=== PATIENT | female | born 1950 | race Caucasian/White ===

== ENCOUNTER 2021-11-04 19:46 | Emergency (ER) | payer MEDICARE, OTHER ==
[~2021-11-04] VITALS: Ht 170.2 cm; Wt 65.3 kg
--- NOTE | 2021-11-04 20:12 | NUR ---
ANGELINA FROM HOME C/O CHRONIC SHOOTING RIGHT LEG PAIN. PATIENT ALERT AND ORIENTED X3. AMBULATORY WITH NON LABORED BREATHIGN IN BED 02 AWAITING MD NORMAN.
[2021-11-04] MEDS ORDERED: KETOROLAC TROMETHAMINE INJ 30 MG/ML VIAL ONE (20:27)
[2021-11-04] MEDS ORDERED: CYCLOBENZAPRINE 10 MG TABLET ONE (20:28)
--- NOTE | 2021-11-04 20:29 | NUR ---
XRAY AT BEDSIDE
[2021-11-04] MEDS ORDERED: KETOROLAC TROMETHAMINE INJ 60 MG/2 ML VIAL IM ONE (20:30)
[2021-11-04] MEDS ORDERED: CYCLOBENZAPRINE 10 MG TABLET PO ONE (20:30)
--- NOTE | 2021-11-04 20:34 | NUR ---
US AT BEDSIDE
--- NOTE | 2021-11-04 21:29 | NUR ---
Carylle faye in [facility] - 11/04/21 at 2132 by SCOT Patient's gas leak inspector helper (Dr. Cueto) updated on patient's condition. He is available to provide additional information and would like to be updated about the patient's hospital course
[2021-11-04] MEDS ORDERED: RIVA15TA PO (21:35)
--- NOTE | 2021-11-04 21:47 | NUR ---
Patient discharged to home in stable condition. Written and verbal after care instructions given. Patient verbalizes understanding of instruction. Pt ambulatory with a steady gait
[2021-11-04 21:54] VITALS: BP 142/74
== END 2021-11-04 21:47 | disposition home or self-care (01) ==
LOC: ER 20:02
DX: I82.441 Acute embolism and thrombosis of right tibial vein (principal); I10 Essential (primary) hypertension; E11.9 Type 2 diabetes mellitus without complications
CPT/HCPCS: 73552; 93971; 96372; 99284; J1885

== ENCOUNTER 2021-11-07 06:52 | Emergency (ER) | payer MEDICARE, OTHER ==
[~2021-11-07] VITALS: Ht 167.6 cm; Wt 59.9 kg
[~2021-11-07 06:52] MED LIST: RIVA15TA PO
--- NOTE | 2021-11-07 07:03 | NUR ---
[id number] FROM HOME C/O R LEG PAIN; WAS DX DVT ON 11/04. PT TOLERATING R/A WELL WITH NO SOB. CONNECTED PT TO POX AND MONITOR. SAFETY MEASURES IN PLACE. VSS. AWAITING MED EVAL Addendum: 11/07/21 at 0705 by JISIP [id number] FROM HOME C/O R LEG PAIN; WAS DX DVT ON 11/04. PT TOLERATING R/A WELL WITH NO SOB. CONNECTED PT TO POX AND MONITOR. SAFETY MEASURES IN PLACE. AWAITING MED EVAL
--- NOTE | 2021-11-07 07:10 | NUR ---
DR. LAW DEL CASTILLO AT PT'S BEDSIDE
[2021-11-07] MEDS ORDERED: MORPHINE SULFATE INJ 2 MG/ML DISP.SYRIN ONE ×2 (07:28→08:11)
[2021-11-07] MEDS ORDERED: MORPHINE SULFATE INJ 2 MG/ML DISP.SYRIN IV ONE ×2 (07:30→08:30)
[2021-11-07 07:46] LABS: BASOPHILS # (AUTO) 0.1 K/uL (0.0-0.2); BASOPHILS % (AUTO) 0.6 % (0.0-2.0); EOSINOPHILS % (AUTO) 1.6 % (0.0-6.0); HEMATOCRIT 27 % (33-45); HEMOGLOBIN 8.6 g/dL (11.5-14.8); LYMPHOCYTES # (AUTO) 2.3 K/uL (0.8-4.8); MEAN CORPUSCULAR HGB CONC 32 g/dl (31.0-36.0); MEAN CORPUSCULAR VOLUME 77 fL (82-100); MONOCYTES # (AUTO) 0.4 K/uL (0.1-1.30); NEUTROPHILS % (AUTO) 72.8 % (43.0-81.0); PLATELET COUNT (AUTO) 634 K/uL (150-450); RED BLOOD CELL COUNT(AUTO) 3.45 MIL/uL (4.0-5.2)
[2021-11-07 07:53] LABS: CALCIUM, SERUM 9.2 mg/dL (8.5-10.1); CARBON DIOXIDE 21 mmol/L (21-32); CHLORIDE 103 mmol/L (98-107); CREATININE 1.4 mg/dL (0.6-1.3); GLUCOSE 343 mg/dL (74-106); POTASSIUM 4.2 mmol/L (3.5-5.1); SODIUM SERUM 142 mmol/L (136-145); UREA NITROGEN, BLOOD 22 mg/dL (7-18)
[2021-11-07] MEDS ORDERED: IOHEXOL-350 100 ML VIAL IV ONE (08:17)
--- NOTE | 2021-11-07 08:37 | NUR ---
PT IS BACK FROM THE CT SCAN.
--- NOTE | 2021-11-07 08:41 | NUR ---
ULTRASOUND AT BEDSIDE
[2021-11-07] MEDS ORDERED: CYCL5TAB PO (09:46)
[2021-11-07] MEDS ORDERED: HYDR-3976 PO (09:46)
[2021-11-07] MEDS ORDERED: CYCLOBENZAPRINE 10 MG TABLET ONE (09:54)
--- NOTE | 2021-11-07 09:56 | NUR ---
IV removed. Catheter intact and site benign. Pressure and 4x4 applied to site. No bleeding noted.Patient discharged to home in stable condition. Written and verbal after care instructions given. Patient verbalizes understanding of instruction.
[2021-11-07 09:57] VITALS: BP 162/88
[2021-11-07] MEDS ORDERED: CYCLOBENZAPRINE 10 MG TABLET PO ONE (10:00)
== END 2021-11-07 09:57 | disposition home or self-care (01) ==
LOC: ER 07:03
DX: M79.604 Pain in right leg (principal); I82.441 Acute embolism and thrombosis of right tibial vein; I10 Essential (primary) hypertension; E11.9 Type 2 diabetes mellitus without complications; Z79.899 Other long term (current) drug therapy
CPT/HCPCS: 36415; 71275; 80048; 84484; 85025; 93005; 93970; 96374; 96376; 99285; J2270 ×2; Q9967

== ENCOUNTER 2021-11-11 23:30 | Emergency (ER) | payer MEDICARE, OTHER ==
[~2021-11-11] VITALS: Ht 157.5 cm; Wt 75.7 kg
[~2021-11-11 23:30] MED LIST changes: +CYCL5TAB PO; +HYDR-3976 PO
[2021-11-12] MEDS ORDERED: IV NS 0.9% 1,000 ML BAG IV ONE
--- NOTE | 2021-11-12 00:11 | NUR ---
BLOOD COLLECTED AND SENT TO LAB
[2021-11-12 00:28] LABS: ALANINE AMINOTRANSFERASE 24 U/L (12-78); ALBUMIN 2.2 g/dL (3.4-5.0); ALKALINE PHOSPHATASE 162 U/L (46-116); ASPARTATE AMINOTRANSFERASE 37 U/L (15-37); BILIRUBIN,DIRECT 0.2 mg/dL (0.0-0.2); BILIRUBIN,TOTAL 0.6 mg/dL (0.2-1.0); CHLORIDE 96 mmol/L (98-107); LIPASE 434 U/L (73-393); POTASSIUM 4.6 mmol/L (3.5-5.1); SODIUM SERUM 131 mmol/L (136-145); TOTAL PROTEIN, SERUM 7.5 g/dL (6.4-8.2)
--- NOTE | 2021-11-12 00:33 | NUR ---
PT REFUSED CHEST XRAY. DR MÉNDEZ NOTIFIED.
[2021-11-12 00:38] LABS: BASOPHILS # (AUTO) 0.1 K/uL (0.0-0.2); BASOPHILS % (AUTO) 0.6 % (0.0-2.0); EOSINOPHILS % (AUTO) 0.8 % (0.0-6.0); HEMATOCRIT 23 % (33-45); HEMOGLOBIN 7.4 g/dL (11.5-14.8); LYMPHOCYTES % (AUTO) 10.2 % (20.0-44.0); MEAN CORPUSCULAR HGB CONC 33 g/dl (31.0-36.0); MEAN CORPUSCULAR VOLUME 76 fL (82-100); MONOCYTES # (AUTO) 0.7 K/uL (0.1-1.30); MONOCYTES % (AUTO) 7.2 % (2.0-12.0); NEUTROPHILS # (AUTO) 8.1 K/uL (1.8-8.9); NEUTROPHILS % (AUTO) 81.2 % (43.0-81.0); PLATELET COUNT (AUTO) 567 K/uL (150-450); RED BLOOD CELL COUNT(AUTO) 2.98 MIL/uL (4.0-5.2)
--- NOTE | 2021-11-12 00:41 | NUR ---
Patient does not wish to proceed with medical care recommended by Dr. Barclay. Patient given information related to possible complications, up to and including , which could occur as a result of leaving the hospital at this time. Patient verbalizes understanding of risks involved due to leaving against medical advice. Patient has signed AMA form.
[2021-11-12 00:42] VITALS: BP 135/78
[2021-11-12 01:00] LABS: CALCIUM, SERUM 9.4 mg/dL (8.5-10.1); CARBON DIOXIDE 23 mmol/L (21-32); CREATININE 1.8 mg/dL (0.6-1.3); UREA NITROGEN, BLOOD 45 mg/dL (7-18)
[2021-11-12 01:02] LABS: GLUCOSE > 500 mg/dL (74-106)
== END 2021-11-12 00:42 | disposition left against medical advice (07) ==
LOC: ER 23:40
DX: E11.65 Type 2 diabetes mellitus with hyperglycemia (principal); I10 Essential (primary) hypertension
CPT/HCPCS: 36415; 80048; 80076; 82010; 82962; 83690; 85025; 85730; 96360; 99283; J7030